=== PATIENT | female | born 1965 | race African-American/Black ===

== ENCOUNTER 2017-12-14 08:23 | Day surgery (SDC) | payer OTHER ==
[2017-12-07 11:37] VITALS: BMI 40.4
[2017-12-14] MEDS ORDERED: BUPIVACAINE HCL/PF 0.5% (5MG/ML) 10 ML VIAL ONE ×2 (13:32→14:47)
[2017-12-14] MEDS ORDERED: morphine CARPU-JECT 10 MG/1 ML DISP.SYRIN ONE (13:33)
[2017-12-14] MEDS ORDERED: SUCCINYLCHOLINE CHLORIDE 200 MG/10 ML VIAL ONE (13:54)
[2017-12-14] MEDS ORDERED: PROPOFOL 20 ML ONE ×2 (13:54)
[2017-12-14] MEDS ORDERED: MIDAZOLAM HCL 2 MG/2 ML SINGLE DOSE VIAL ONE (13:55)
[2017-12-14] MEDS ORDERED: ONDANSETRON 4 MG/2 ML VIAL ONE ×2 (14:15→15:41)
[2017-12-14] MEDS ORDERED: ceFAZolin SODIUM 1 GM VIAL ONE (14:15)
[2017-12-14] MEDS ORDERED: DEXAMETHASONE SOD PHOSPHATE 4 MG/1 ML VIAL ONE (14:15)
[2017-12-14] MEDS ORDERED: KETOROLAC TROMETHAMINE 30 MG/1 ML VIAL ONE (14:15)
[2017-12-14] MEDS ORDERED: LIDOCAINE HCL/PF 2% SDV 5ML VIAL ONE (14:15)
[2017-12-14] MEDS ORDERED: ONDANSETRON 4 MG/2 ML VIAL IVPUSH PRN (15:03)
[2017-12-14] MEDS ORDERED: oxyCODONE HCL 5 MG TABLET PO PRN ×2 (15:03)
[2017-12-14] MEDS ORDERED: PROMETHAZINE HCL 25 MG/1 ML VIAL IVPUSH PRN (15:03)
[2017-12-14 16:48] VITALS: BP 143/87; PULSE 68; TEMP 97.9
--- NOTE | 2017-12-15 06:24 | OP ---
DATE OF OPERATION: 12/14/2017 PREOPERATIVE DIAGNOSIS: Right knee torn medial meniscus. 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 PROCEDURE PERFORMED: Operative arthroscopy of the right knee with partial medial and lateral meniscectomy, chondroplasty, synovectomy, joint debridement, and microfracture technique to recruit local stem cells for osteochondral defect. SURGEON: Sea Durbin MD CROWN PERFORATOR OPERATOR: KASIA Lo ANESTHESIA: Catarino Hilario MD; general anesthesia. The procedure consisted of the patient being brought in the operating room and gently transferred from the stretcher to the OR table with all bony prominences well padded. The right knee was prepared and draped in a sterile fashion. Patient was given intravenous antibiotics and copious irrigation throughout the procedure to minimize the risk for infection. A complete risks, benefits, and alternatives discussion was conducted with the patient. Risks inclusive of but not limited to infection, bleeding, , paralysis, increased pain, need for repeat surgery. Patient asked questions, understood the procedure and desired to proceed with the surgical treatment. Appropriate timeout, which was inclusive of but not limited to site of surgery, surgeon, type of surgery, anesthesiologist was performed. Following sterile preparation and draping of the right leg, the leg was exsanguinated using an Esmarch bandage. Tourniquet inflated to 350 mmHg. Suprapatellar, medial, and lateral joint line portals were used to introduce the arthroscope and arthroscopic instruments. The knee was examined. There was noted to be hypertrophic synovium in the suprapatellar pouch. Partial synovectomy was performed. The inferior surface of the patella damage consisted of chondromalacia. It was smoothed using shaver and radiofrequency wand. Medial and lateral gutters without plica or loose body. Medial meniscus was noted to have a tear at the posterior horn. This was resected using shaver and radiofrequency wand. There was noted to be an osteochondral defect approximately 1 cm in diameter on the medial femoral condyle. This was debrided in microfracture technique using bony awls; appropriate angle and shape were used to create a microfracture pattern. Intercondylar region was evaluated. There was noted to be joint debris in the intercondylar region, and a joint debridement was performed. Lateral meniscus was noted to have a tear of the posterior horn, and this was resected using shaver, radiofrequency wand, and biters of appropriate angle and shape. The knee was then copiously irrigated with sterile saline irrigant. The wounds were closed with 4-0 undyed Vicryl. It should be noted that the inferior surface of the patella did have damage consistent with chondromalacia, and this was smoothed using shaver and radiofrequency wand. This and the chondroplasty had been performed prior to closure. Following this, the wounds were closed with 4-0 undyed Vicryl. We applied Steri-Strips, Xeroform, 4 x 4's, a sterile Jorge bandage, and knee immobilizer. Tourniquet was deflated at approximately 20 minutes of tourniquet time. There were no intraoperative complications. SEA DURBIN M.D. [id number]
== END 2017-12-14 17:02 | disposition home or self-care (01) ==
LOC: FASU 08:23
PROVIDERS: ATTEND Orthopaedic Surgery
PROC: 0SBC4ZZ Excision of Right Knee Joint, Percutaneous Endoscopic Approach (ICD-10-PCS; 2017-12-14)
PROC: 0SBC4ZZ Excision of Right Knee Joint, Percutaneous Endoscopic Approach (ICD-10-PCS; 2017-12-14)
PROC: 0SBC4ZZ Excision of Right Knee Joint, Percutaneous Endoscopic Approach (ICD-10-PCS; principal; 2017-12-14 14:23)
DX: S83.241A Other tear of medial meniscus, current injury, right knee, initial encounter (principal); S83.281A Other tear of lateral meniscus, current injury, right knee, initial encounter; M67.261 Synovial hypertrophy, not elsewhere classified, right lower leg; M22.41 Chondromalacia patellae, right knee; M21.961 Unspecified acquired deformity of right lower leg; M25.861 Other specified joint disorders, right knee; X58.XXXA Exposure to other specified factors, initial encounter; Y93.89 Activity, other specified; Y92.89 Other specified places as the place of occurrence of the external cause
CPT/HCPCS: 94760; 97116-GP